=== PATIENT | female | born 2000 | race Caucasian/White ===

== ENCOUNTER 2022-01-21 10:20 | Inpatient (IN) | payer OTHER ==
[2022-01-21] MEDS ORDERED: CITRIC ACID/SODIUM CITRATE 30 ML UNIT-DOSE CUP PO ONE (11:48)
[2022-01-21] MEDS ORDERED: ELECTROLYTE-148 SOLN 500 ML IV ONE (11:48)
[2022-01-21] MEDS ORDERED: ELECTROLYTE-148 SOLN 1,000 ML IV SCH ×2 (12:00→12:18)
[2022-01-21] MEDS ORDERED: ACETAMINOPHEN 325 MG TABLET (FP) PO PRN (12:01)
[2022-01-21] MEDS ORDERED: IBUPROFEN 800 MG/8 ML IJ IVPB PRN (12:01)
[2022-01-21] MEDS ORDERED: OXYTOCIN 20 UNITS in 0.9% NS 20 UNIT/1,000 ML INFUS.BAG IV SCH (12:15)
[2022-01-21 12:33] LABS: BASO % 0.5 % (0-2.0); EOS % 0.2 % (0-4.5); HEMATOCRIT 32.8 % (32.4-45.2); HEMOGLOBIN 10.8 GM/dL (10.7-15.3); LYMPH % 21.3 % (8-40); MCH 26.9 pg (25.7-33.7); MEAN CELL VOLUME 81.5 fl (80-96); MEAN PLT VOLUME 9.6 fl (7.5-11.1); PLATELET COUNT 192 10^3/uL (134-434); RBC 4.03 M/mm3 (3.60-5.2); RDW 16.6 % (11.6-15.6); WHITE BLOOD COUNT 4.6 K/mm3 (4.0-10.0)
[2022-01-21 12:39] LABS: INR 0.86 (0.83-1.09); PROTHROMBIN TIME (PATIENT) 9.9 SEC (9.7-13.0)
[2022-01-21 12:47] LABS: CALCIUM 8.5 mg/dL (8.5-10.1)
[2022-01-21 12:51] LABS: CREATININE 0.7 mg/dL (0.55-1.3)
[2022-01-21] MEDS ORDERED: ONDANSETRON 4 MG/2 ML VIAL IVPUSH PRN (12:57)
[2022-01-21] MEDS ORDERED: morphine SULFATE/PF 1 MG/2 ML (2cc Syringe - QUVA) ONE (13:04)
[2022-01-21] MEDS ORDERED: ceFAZolin SODIUM 1 GM VIAL ONE (13:14)
[2022-01-21] MEDS ORDERED: OXYTOCIN 10 UNITS/ML VIAL ONE (13:52)
[2022-01-21 13:53] LABS: COCAINE, UR NEGATIVE (NEGATIVE); OPIATES, URI NEGATIVE (NEGATIVE); PHENCYCLIDINE,URINE NEGATIVE (NEGATIVE); URINE AMPHETAMINES NEGATIVE (NEGATIVE); URINE BARBITURATES NEGATIVE (NEGATIVE)
[2022-01-21 13:54] LABS: METHADONE, UR NEGATIVE (NEGATIVE); URINE BENZODIAZEPINES NEGATIVE (NEGATIVE)
[2022-01-21 15:38] VITALS: BMI 25.5
[2022-01-21] MEDS ORDERED: IBUPROFEN 800 MG/8 ML IJ IVPB ONE (16:23)
[2022-01-21 20:16] LABS: POC NITRAZINE POS
[2022-01-22] MEDS ORDERED: oxyCODONE HCL 5 MG TABLET PO PRN (00:01)
[2022-01-22] MEDS: IBUPROFEN 600 MG TABLET (FP) PO PRN ×2 (08:03→15:35)
[2022-01-22] MEDS: SIMETHICONE 80 MG TAB.CHEW (FP) PO PRN ×2 (08:03→15:35)
[2022-01-22 09:58] LABS: BASO % 0.3 % (0-2.0); HEMATOCRIT 28.5 % (32.4-45.2); HEMOGLOBIN 9.7 GM/dL (10.7-15.3); LYMPH % 12.6 % (8-40); MCH 27.4 pg (25.7-33.7); MEAN CELL VOLUME 80.8 fl (80-96); MEAN PLT VOLUME 9.1 fl (7.5-11.1); MONO % 5.3 % (3.8-10.2); NEUT % 81.8 % (42.8-82.8); PLATELET COUNT 181 10^3/uL (134-434); RBC 3.52 M/mm3 (3.60-5.2); RDW 17.2 % (11.6-15.6); WHITE BLOOD COUNT 6.2 K/mm3 (4.0-10.0)
[2022-01-22] MEDS ORDERED: BISACODYL 10 MG SUPP.RECT RC PRN (12:01)
[2022-01-23] MEDS: IBUPROFEN 600 MG TABLET (FP) PO PRN ×2 (00:41→14:37)
[2022-01-23] MEDS: SIMETHICONE 80 MG TAB.CHEW (FP) PO PRN ×2 (00:41→14:37)
[2022-01-24 07:22] LABS: BASO % 0.3 % (0-2.0); EOS % 1.6 % (0-4.5); HEMATOCRIT 29.4 % (32.4-45.2); LYMPH % 22.4 % (8-40); MCHC 33.9 g/dl (32.0-36.0); MEAN CELL VOLUME 82.4 fl (80-96); MEAN PLT VOLUME 9.4 fl (7.5-11.1); MONO % 7.5 % (3.8-10.2); NEUT % 68.2 % (42.8-82.8); PLATELET COUNT 269 10^3/uL (134-434); RBC 3.57 M/mm3 (3.60-5.2); RDW 17.7 % (11.6-15.6); WHITE BLOOD COUNT 5.5 K/mm3 (4.0-10.0)
[2022-01-24 08:18] VITALS: BP 129/83; PULSE 68; TEMP 98.9
== END 2022-01-24 15:20 | disposition home or self-care (01) | DRG 540 ==
LOC: JDEL 10:20 → JLDR 11:25 → J3W 17:41
PROVIDERS: ADMIT Student in an Organized Health Care Education/Training Program; ATTEND Student in an Organized Health Care Education/Training Program
PROC: 10D00Z1 Extraction of Products of Conception, Low, Open Approach (ICD-10-PCS; principal; 2022-01-21)
DX: O42.013 Preterm premature rupture of membranes, onset of labor within 24 hours of rupture, third trimester (principal); O98.52 Other viral diseases complicating childbirth; B00.89 Other herpesviral infection; Z3A.36 36 weeks gestation of pregnancy; Z37.0 Single live birth
CPT/HCPCS: 36415; 59025; 71045-TC-FY; 80048; 80307; 83986-QW; 85025; 85610; 85730; 86780; 86850; 86900; 86901; 88307-TC; C9803-CS; U0003; U0005

== ENCOUNTER 2022-02-26 09:05 | Emergency (ER) | payer OTHER ==
[2022-02-26 09:12] VITALS: TEMP 98.1; BMI 20.1
[2022-02-26] MEDS ORDERED: METHOCARBAMOL 500 MG TABLET PO ONE (10:31)
[2022-02-26] MEDS ORDERED: KETOROLAC TROMETHAMINE 30 MG/1 ML VIAL IVPUSH ONE (10:31)
[2022-02-26] MEDS ORDERED: METHOCARBAMOL 500 MG TABLET ONE (11:14)
[2022-02-26] MEDS ORDERED: KETOROLAC TROMETHAMINE 30 MG/1 ML VIAL ONE (11:14)
[2022-02-26 11:23] LABS: BASO % 0.3 % (0-2.0); EOS % 0.7 % (0-4.5); HEMOGLOBIN 12.4 GM/dL (10.7-15.3); LYMPH % 14.8 % (8-40); MCH 26.7 pg (25.7-33.7); MCHC 32.6 g/dl (32.0-36.0); MEAN CELL VOLUME 81.9 fl (80-96); MEAN PLT VOLUME 8.1 fl (7.5-11.1); MONO % 5.6 % (3.8-10.2); NEUT % 78.6 % (42.8-82.8); PLATELET COUNT 320 10^3/uL (134-434); RBC 4.65 M/mm3 (3.60-5.2); WHITE BLOOD COUNT 5.1 K/mm3 (4.0-10.0)
[2022-02-26 11:38] LABS: INR 0.96 (0.83-1.09)
[2022-02-26 11:42] LABS: ALBUMIN 4.3 g/dl (3.4-5.0); CALCIUM 9.9 mg/dL (8.5-10.1)
[2022-02-26 11:43] LABS: BLOOD UREA NITROGEN 7.8 mg/dL (7-18)
[2022-02-26 11:46] LABS: CREATININE 0.6 mg/dL (0.55-1.3)
[2022-02-26 11:48] LABS: BILIRUBIN,TOTAL 0.4 mg/dL (0.2-1); TOT PROT 9.1 g/dl (6.4-8.2)
[2022-02-26 14:37] VITALS: BP 98/52; PULSE 70
== END 2022-02-26 14:54 | disposition home or self-care (01) ==
LOC: JER 09:05
PROC: 3E0333Z Introduction of Anti-inflammatory into Peripheral Vein, Percutaneous Approach (ICD-10-PCS; principal; 2022-02-26)
DX: M54.6 Pain in thoracic spine (principal)
CPT/HCPCS: 36415; 71275-TC; 80053; 84484; 84703; 85025; 85379; 85610; 86480; 93005; 93010; 99285-25

== ENCOUNTER 2022-03-05 13:36 | Inpatient (IN) | payer OTHER ==
[2022-03-05] MEDS ORDERED: ACETAMINOPHEN 1000 MG/100 ML BAG IVPB ONE (14:25)
[2022-03-05] MEDS ORDERED: SODIUM CHLORIDE 1,000 ML IV STA (14:28)
[2022-03-05] MEDS ORDERED: ONDANSETRON 4 MG/2 ML VIAL IVPUSH ONE (14:29)
[2022-03-05] MEDS ORDERED: ACETAMINOPHEN INJECTION 100 ML IVPB ONE (14:32)
[2022-03-05] MEDS ORDERED: FAMOTIDINE 20 MG/50 ML IVPB 20 MG/50 ML MG IVPB ONE ×2 (14:32→22:50)
[2022-03-05] MEDS ORDERED: ONDANSETRON 4 MG/2 ML VIAL ONE (14:32)
[2022-03-05] MEDS: FAMOTIDINE 20 MG/50 ML IVPB 20 MG/50 ML MG IVPB SCH ×2 (14:50→23:21)
[2022-03-05 15:21] LABS: BASO % 0.5 % (0-2.0); EOS % 0.4 % (0-4.5); HEMATOCRIT 34.8 % (32.4-45.2); HEMOGLOBIN 11.6 GM/dL (10.7-15.3); LYMPH % 13.8 % (8-40); MCH 27.1 pg (25.7-33.7); MCHC 33.3 g/dl (32.0-36.0); MEAN CELL VOLUME 81.3 fl (80-96); MEAN PLT VOLUME 8.5 fl (7.5-11.1); MONO % 4.1 % (3.8-10.2); NEUT % 81.2 % (42.8-82.8); PLATELET COUNT 337 10^3/uL (134-434); RBC 4.28 M/mm3 (3.60-5.2); WHITE BLOOD COUNT 8.3 K/mm3 (4.0-10.0)
[2022-03-05 15:27] LABS: EPI CELLS 7 /uL (0-25.1); HYALINE CASTS 2 /uL (0-3.1); URINE APPEARANCE CLEAR; URINE BACTERIA 27 /uL (0-1359); URINE BILIRUBIN NEGATIVE (NEGATIVE); URINE COLOR YELLOW; URINE GLUCOSE (UA) NEGATIVE (NEGATIVE); URINE KETONE NEGATIVE (NEGATIVE); URINE LEUK ESTERASE NEGATIVE (NEGATIVE); URINE NITRITE NEGATIVE (NEGATIVE); URINE PROTEIN 1+ (NEGATIVE); URINE RBC 82 /uL (0-23.9); URINE UROBILINOGEN 0.2 mg/dL (0.2-1.0); URINE WBC 9 /uL (0-25.8)
[2022-03-05 15:37] LABS: CALCIUM 9.1 mg/dL (8.5-10.1)
[2022-03-05 15:38] LABS: BLOOD UREA NITROGEN 6.7 mg/dL (7-18)
[2022-03-05 15:40] LABS: CREATININE 0.7 mg/dL (0.55-1.3)
[2022-03-05 15:42] LABS: BILIRUBIN,TOTAL 0.4 mg/dL (0.2-1); TOT PROT 8.3 g/dl (6.4-8.2)
[2022-03-05 18:35] LABS: INR 0.97 (0.83-1.09); PROTHROMBIN TIME (PATIENT) 11.1 SEC (9.7-13.0)
[2022-03-05 18:38] LABS: ACTIVATED PTT 34.8 SECONDS (25.2-36.5)
[2022-03-05] MEDS ORDERED: ONDANSETRON 4 MG/2 ML VIAL IVPUSH PRN (19:43)
[2022-03-06 02:24] VITALS: BMI 20.7
[2022-03-06 08:48] LABS: BASO % 0.6 % (0-2.0); EOS % 0.3 % (0-4.5); HEMATOCRIT 30.6 % (32.4-45.2); HEMOGLOBIN 10.4 GM/dL (10.7-15.3); LYMPH % 27.2 % (8-40); MCH 27.9 pg (25.7-33.7); MEAN CELL VOLUME 82.1 fl (80-96); MEAN PLT VOLUME 7.9 fl (7.5-11.1); MONO % 7.4 % (3.8-10.2); NEUT % 64.5 % (42.8-82.8); PLATELET COUNT 274 10^3/uL (134-434); RBC 3.73 M/mm3 (3.60-5.2); RDW 17.4 % (11.6-15.6); WHITE BLOOD COUNT 3.7 K/mm3 (4.0-10.0)
[2022-03-06 09:12] LABS: ALBUMIN 3.3 g/dl (3.4-5.0); CALCIUM 9.1 mg/dL (8.5-10.1)
[2022-03-06 09:13] LABS: BLOOD UREA NITROGEN 4.3 mg/dL (7-18); MAGNESIUM 2.4 mg/dL (1.8-2.4)
[2022-03-06 09:15] LABS: PHOSPHOROUS 3.7 mg/dL (2.5-4.9)
[2022-03-06 09:16] LABS: CREATININE 0.7 mg/dL (0.55-1.3)
[2022-03-06 09:17] LABS: BILIRUBIN,TOTAL 1.5 mg/dL (0.2-1); TOT PROT 6.8 g/dl (6.4-8.2)
[2022-03-06] MEDS: FAMOTIDINE 20 MG/50 ML IVPB 20 MG/50 ML MG IVPB SCH ×2 (09:18→23:16)
[2022-03-06] MEDS ORDERED: CEFTRIAXONE 1 GM in DEXTROSE 5%-WATER - 50 ML IVPB ONE (12:00)
[2022-03-06] MEDS ORDERED: cefTRIAXone SODIUM 1 GM VIAL ONE (12:02)
[2022-03-06] MEDS ORDERED: DEXTROSE 5%-WATER - 50 ML IVPB ONE (12:03)
[2022-03-07] MEDS ORDERED: DEXTROSE 5%-0.45% SALINE 1,000 ML IV SCH (07:00)
[2022-03-07 08:48] LABS: BASO % 0.6 % (0-2.0); EOS % 0.9 % (0-4.5); HEMATOCRIT 31.3 % (32.4-45.2); HEMOGLOBIN 10.4 GM/dL (10.7-15.3); LYMPH % 22.3 % (8-40); MCH 27.6 pg (25.7-33.7); MCHC 33.4 g/dl (32.0-36.0); MEAN CELL VOLUME 82.5 fl (80-96); MEAN PLT VOLUME 8.9 fl (7.5-11.1); MONO % 5.9 % (3.8-10.2); NEUT % 70.3 % (42.8-82.8); PLATELET COUNT 267 10^3/uL (134-434); RBC 3.79 M/mm3 (3.60-5.2); WHITE BLOOD COUNT 3.7 K/mm3 (4.0-10.0)
[2022-03-07 09:04] LABS: ALBUMIN 3.5 g/dl (3.4-5.0); BLOOD UREA NITROGEN 8.1 mg/dL (7-18); MAGNESIUM 2.1 mg/dL (1.8-2.4)
[2022-03-07 09:07] LABS: CREATININE 0.7 mg/dL (0.55-1.3); PHOSPHOROUS 3.5 mg/dL (2.5-4.9)
[2022-03-07 09:08] LABS: TOT PROT 7.2 g/dl (6.4-8.2)
[2022-03-07] MEDS: FAMOTIDINE 20 MG/50 ML IVPB 20 MG/50 ML MG IVPB SCH ×2 (10:50→22:12)
[2022-03-08] MEDS ORDERED: INDOMETHACIN 50 MG RECTAL SUPPOSITORY PR ONE ×2 (08:01→09:17)
[2022-03-08] MEDS ORDERED: CEFAZOLIN 1 GM in DEXTROSE 5%-WATER - 50 ML IVPB ONE (08:07)
[2022-03-08] MEDS ORDERED: EPINEPHrine 1:10,000 (P-F SYR) 1 MG/10 ML DISP.SYRIN ONE (08:40)
[2022-03-08] MEDS ORDERED: FENTANYL CITRATE/PF 50 MCG/ML VIAL ONE (08:51)
[2022-03-08] MEDS ORDERED: MIDAZOLAM HCL 2 MG/2 ML SINGLE DOSE VIAL ONE (08:51)
[2022-03-08 08:58] LABS: HEMATOCRIT 30.6 % (32.4-45.2); HEMOGLOBIN 10.2 GM/dL (10.7-15.3); MCH 27.4 pg (25.7-33.7); MCHC 33.4 g/dl (32.0-36.0); MEAN PLT VOLUME 8.5 fl (7.5-11.1); PLATELET COUNT 280 10^3/uL (134-434); RBC 3.73 M/mm3 (3.60-5.2); RDW 16.9 % (11.6-15.6); WHITE BLOOD COUNT 2.8 K/mm3 (4.0-10.0)
[2022-03-08] MEDS ORDERED: ceFAZolin SODIUM 1 GM VIAL ONE (09:15)
[2022-03-08 09:20] LABS: ALBUMIN 3.2 g/dl (3.4-5.0); CALCIUM 8.6 mg/dL (8.5-10.1)
[2022-03-08 09:21] LABS: BLOOD UREA NITROGEN 4.7 mg/dL (7-18)
[2022-03-08 09:24] LABS: CREATININE 0.7 mg/dL (0.55-1.3)
[2022-03-08 09:25] LABS: BILIRUBIN,TOTAL 0.5 mg/dL (0.2-1); TOT PROT 6.6 g/dl (6.4-8.2)
[2022-03-08] MEDS ORDERED: IOHEXOL 300 MG/ML INFUS..BTL IV ONE (09:39)
[2022-03-08] MEDS ORDERED: CEFAZOLIN 2 GM in SODIUM CHLORIDE 100 ML IVPB SCH (10:00)
[2022-03-08] MEDS ORDERED: LACTATED RINGERS SOLUTION 1,000 ML/1,000 ML INFUS.BAG IV SCH (10:30)
[2022-03-08] MEDS ORDERED: CEFTRIAXONE 1 GM in DEXTROSE 5%-WATER - 50 ML IVPB SCH (11:15)
[2022-03-08] MEDS ORDERED: DEXTROSE 5%-WATER - 50 ML IVPB ONE (11:56)
[2022-03-08] MEDS ORDERED: cefTRIAXone SODIUM 1 GM VIAL ONE (11:56)
[2022-03-08] MEDS: DEXTROSE 5%-LACTATED RINGERS 1,000 ML IV SCH ×3 (12:14→21:04)
[2022-03-08] MEDS: FAMOTIDINE 20 MG/50 ML IVPB 20 MG/50 ML MG IVPB SCH ×2 (12:51→21:05)
[2022-03-08] MEDS ORDERED: ceFAZolin 2 GRAM PREMIX BAG IVPB SCH (14:00)
[2022-03-08] MEDS: CEFAZOLIN 2 GM in SODIUM CHLORIDE 100 ML IVPB SCH (17:01)
[2022-03-08 19:07] LABS: GLIADIN ANTIBODY IGA 3 units (0-19); GLIADIN ANTIBODY IGG <1 units (0-19); TRANSGLUTAMINASE IGG < 2 U/mL (0-5)
[2022-03-09] MEDS: CEFAZOLIN 2 GM in SODIUM CHLORIDE 100 ML IVPB SCH ×2 (02:16→11:37)
[2022-03-09] MEDS: DEXTROSE 5%-LACTATED RINGERS 1,000 ML IV SCH (06:30)
[2022-03-09] MEDS ORDERED: DEXTROSE 5%-LACTATED RINGERS 1,000 ML IV SCH (08:11)
[2022-03-09] MEDS: FAMOTIDINE 20 MG/50 ML IVPB 20 MG/50 ML MG IVPB SCH ×2 (09:02→21:56)
[2022-03-09] MEDS ORDERED: DEXTROSE 5%-WATER - 50 ML IVPB ONE (09:04)
[2022-03-09] MEDS ORDERED: cefTRIAXone SODIUM 1 GM VIAL ONE (09:04)
[2022-03-09 09:09] LABS: BASO % 0.4 % (0-2.0); EOS % 0.1 % (0-4.5); HEMATOCRIT 25.9 % (32.4-45.2); HEMOGLOBIN 8.8 GM/dL (10.7-15.3); LYMPH % 32.9 % (8-40); MCH 27.8 pg (25.7-33.7); MCHC 33.9 g/dl (32.0-36.0); MEAN PLT VOLUME 8.4 fl (7.5-11.1); MONO % 9.7 % (3.8-10.2); NEUT % 56.9 % (42.8-82.8); PLATELET COUNT 247 10^3/uL (134-434); RBC 3.15 M/mm3 (3.60-5.2); RDW 17.1 % (11.6-15.6); WHITE BLOOD COUNT 4.6 K/mm3 (4.0-10.0)
[2022-03-09 09:34] LABS: CHLORIDE 111 mmol/L (98-107); INR 1.09 (0.83-1.09); PROTHROMBIN TIME (PATIENT) 12.6 SEC (9.7-13.0); SODIUM 144 mmol/L (136-145)
[2022-03-09] MEDS ORDERED: CEFTRIAXONE 1 GM in DEXTROSE 5%-WATER - 50 ML IVPB SCH (10:00)
[2022-03-09 10:02] LABS: ANION GAP 7 MMOL/L (8-16); CO2 26 mmol/L (21-32); LIPASE 877 U/L (73-393)
[2022-03-09 10:03] LABS: CREATININE 0.7 mg/dL (0.55-1.3)
[2022-03-09 10:04] LABS: TOT PROT 5.6 g/dl (6.4-8.2)
[2022-03-09 10:05] LABS: SGOT/AST 62 U/L (15-37)
[2022-03-09 10:06] LABS: GLUCOSE,RANDOM 148 mg/dL (74-106)
[2022-03-09 10:07] LABS: ALBUMIN 2.8 g/dl (3.4-5.0); AMYLASE 222 U/L (25-115)
[2022-03-09 10:08] LABS: BILIRUBIN,DIRECT 0.2 mg/dL (0.0-0.2); CALCIUM 8.5 mg/dL (8.5-10.1)
[2022-03-09 10:09] LABS: BILIRUBIN,TOTAL 0.3 mg/dL (0.2-1)
[2022-03-09 10:12] LABS: SGPT/ALT 155 U/L (13-61)
[2022-03-09 10:14] LABS: ALK PHOS 155 U/L (45-117); BLOOD UREA NITROGEN 2.9 mg/dL (7-18)
[2022-03-09] MEDS ORDERED: ONDANSETRON 4 MG/2 ML VIAL IVPUSH PRN ×3 (13:11→14:51)
[2022-03-09] MEDS ORDERED: MIDAZOLAM HCL 2 MG/2 ML SINGLE DOSE VIAL ONE (13:14)
[2022-03-09] MEDS ORDERED: ROCURONIUM BROMIDE 100 MG/10 ML VIAL ONE (13:15)
[2022-03-09] MEDS ORDERED: PROPOFOL 20 ML ONE (13:15)
[2022-03-09] MEDS ORDERED: LACTATED RINGERS SOLUTION 1,000 ML IV SCH (13:15)
[2022-03-09] MEDS ORDERED: FENTANYL CITRATE/PF 50 MCG/ML VIAL ONE ×5 (13:15→14:59)
[2022-03-09] MEDS ORDERED: BUPIVACAINE HCL/PF 0.25% (2.5MG/ML) 10 ML VIAL ONE (13:17)
[2022-03-09] MEDS ORDERED: KETOROLAC TROMETHAMINE 30 MG/1 ML VIAL ONE (13:55)
[2022-03-09] MEDS ORDERED: DEXAMETHASONE SOD PHOSPHATE 4 MG/1 ML VIAL ONE (13:55)
[2022-03-09] MEDS ORDERED: LIDOCAINE HCL/PF 2% SDV 5ML VIAL ONE (13:55)
[2022-03-09] MEDS ORDERED: ONDANSETRON 4 MG/2 ML VIAL ONE (13:55)
[2022-03-09] MEDS ORDERED: GLYCOPYRROLATE 0.2 MG/1 ML VIAL ONE ×2 (13:55→13:56)
[2022-03-09] MEDS ORDERED: NEOSTIGMINE METHYLSULFATE 0.5 MG/ML - 10 ML MDV ONE (13:57)
[2022-03-09] MEDS ORDERED: BUPIVACAINE HCL/PF 2.5 MG/ML - 30 ML VIAL IJ ONE (14:05)
[2022-03-09] MEDS ORDERED: oxyCODONE HCL 5 MG TABLET PO PRN (14:51)
[2022-03-09] MEDS ORDERED: IBUPROFEN 800 MG/8 ML IJ IVPB PRN (14:51)
[2022-03-09] MEDS: LACTATED RINGERS SOLUTION 1,000 ML IV SCH (17:38)
[2022-03-10] MEDS: LACTATED RINGERS SOLUTION 1,000 ML IV SCH (01:51)
[2022-03-10] MEDS: ACETAMINOPHEN 325 MG TABLET (FP) PO PRN ×2 (04:11→12:55)
[2022-03-10 09:05] LABS: HEMOGLOBIN 9.6 GM/dL (10.7-15.3); MCHC 34.1 g/dl (32.0-36.0); MEAN CELL VOLUME 81.9 fl (80-96); MEAN PLT VOLUME 8.4 fl (7.5-11.1); PLATELET COUNT 255 10^3/uL (134-434); RBC 3.42 M/mm3 (3.60-5.2); RDW 17.1 % (11.6-15.6); WHITE BLOOD COUNT 5.3 K/mm3 (4.0-10.0)
[2022-03-10 09:30] LABS: ALBUMIN 3.2 g/dl (3.4-5.0); CALCIUM 8.7 mg/dL (8.5-10.1)
[2022-03-10 09:34] LABS: CREATININE 0.7 mg/dL (0.55-1.3)
[2022-03-10 09:35] LABS: BILIRUBIN,TOTAL 0.4 mg/dL (0.2-1); TOT PROT 6.4 g/dl (6.4-8.2)
[2022-03-10] MEDS: FAMOTIDINE 20 MG/50 ML IVPB 20 MG/50 ML MG IVPB SCH (10:06)
[2022-03-10 10:18] VITALS: BP 118/70; PULSE 67; TEMP 98.2
== END 2022-03-10 15:35 | disposition home or self-care (01) | DRG 263 ==
LOC: JER 13:36 → JERBED 17:44 → J7W 03-06 01:25
PROVIDERS: ADMIT Internal Medicine; ATTEND Internal Medicine
PROC: 0FC98ZZ Extirpation of Matter from Common Bile Duct, Via Natural or Artificial Opening Endoscopic (ICD-10-PCS; 2022-03-08)
PROC: BF14YZZ Fluoroscopy of Gallbladder, Bile Ducts and Pancreatic Ducts using Other Contrast (ICD-10-PCS; 2022-03-08)
PROC: 0FT44ZZ Resection of Gallbladder, Percutaneous Endoscopic Approach (ICD-10-PCS; principal; 2022-03-09 13:00)
DX: K80.50 Calculus of bile duct without cholangitis or cholecystitis without obstruction (principal); K80.20 Calculus of gallbladder without cholecystitis without obstruction; R10.11 Right upper quadrant pain; R10.13 Epigastric pain; R74.01 Elevation of levels of liver transaminase levels
CPT/HCPCS: 36415; 74181-TC; 76000-TC-FY; 76705-TC; 80053; 81003; 82150; 82248; 82784; 83516; 83690; 83735; 84100; 84703; 85025; 85027; 85610; 85730; 86038; 86140; 86705; 86707; 86708; 86850; 86900; 86901; 87086; 87340; 87350; 87517; 87902; 88304-TC; 93005; 93010; 94760; 99285-25; C9803-CS; U0003; U0005

== ENCOUNTER 2023-04-24 00:24 | Emergency (ER) | payer OTHER ==
[2023-04-24 00:38] VITALS: BP 112/72; PULSE 79; RESP 20; TEMP 98.4; BMI 23.2
[2023-04-24] MEDS ORDERED: AMOX TR/POT CLAV 875MG/125MG TABLETS (FP) PO ONE (01:06)
[2023-04-24] MEDS ORDERED: IBUPROFEN 600 MG TABLET (FP) PO ONE ×2 (01:06→01:09)
[2023-04-24] MEDS ORDERED: AMOX TR/POT CLAV 875MG/125MG TABLETS (FP) ONE (01:08)
== END 2023-04-24 01:40 | disposition home or self-care (01) ==
LOC: JER 00:24
DX: L60.0 Ingrowing nail (principal); M79.675 Pain in left toe(s); L08.9 Local infection of the skin and subcutaneous tissue, unspecified
CPT/HCPCS: 99283-25

== ENCOUNTER 2023-12-02 22:42 | Emergency (ER) | payer OTHER ==
[2023-12-02 22:47] VITALS: BP 121/75; PULSE 96; RESP 20; TEMP 98.4; BMI 28.3
[2023-12-02] MEDS ORDERED: ACETAMINOPHEN INJECTION 100 ML IVPB ONE (23:17)
[2023-12-02] MEDS ORDERED: FAMOTIDINE 10 MG/ML VIAL IVPB ONE (23:17)
[2023-12-02] MEDS ORDERED: FAMOTIDINE 20 MG/50 ML IVPB 20 MG/50 ML MG IVPB ONE (23:17)
[2023-12-02 23:18] LABS: BASO % 0.8 % (0-2.0); EOS % 0.5 % (0-4.5); HEMATOCRIT 34.6 % (32.4-45.2); HEMOGLOBIN 11.9 GM/dL (10.7-15.3); LYMPH % 20.4 % (8-40); MCH 26.6 pg (25.7-33.7); MCHC 34.4 g/dl (32.0-36.0); MEAN CELL VOLUME 77.3 fl (80-96); MEAN PLT VOLUME 8.5 fl (7.5-11.1); MONO % 5.6 % (3.8-10.2); NEUT % 72.7 % (42.8-82.8); PLATELET COUNT 248 10^3/uL (134-434); RBC 4.47 M/mm3 (3.60-5.2); RDW 15.3 % (11.6-15.6); WHITE BLOOD COUNT 6.7 K/mm3 (4.0-10.0)
[2023-12-02] MEDS ORDERED: ONDANSETRON 4 MG/2 ML VIAL ONE (23:18)
[2023-12-02 23:35] LABS: POTASSIUM 4.1 mmol/L (3.5-5.1)
[2023-12-02 23:38] LABS: ALBUMIN 3.7 g/dl (3.4-5.0); BLOOD UREA NITROGEN 8.3 mg/dL (7-18)
[2023-12-02 23:40] LABS: CREATININE 0.7 mg/dL (0.55-1.3)
[2023-12-02 23:41] LABS: BILIRUBIN,TOTAL 0.2 mg/dL (0.2-1)
[2023-12-02] MEDS: ACETAMINOPHEN 1000 MG/100 ML BAG IVPB ONE (23:57)
[2023-12-03] MEDS: ONDANSETRON 4 MG/2 ML VIAL IVPUSH ONE (00:07)
[2023-12-03] MEDS: FAMOTIDINE 20 MG/50 ML IVPB 20 MG/50 ML MG IVPB ONE (00:07)
[2023-12-03] MEDS: SODIUM CHLORIDE 0.9% 500 ML INFUS.BAG IV ONE (00:07)
[2023-12-03 00:56] LABS: HCG,QUALITATIVE URINE Positive
[2023-12-03 00:59] LABS: EPI CELLS 2 /uL (0-25.1); HYALINE CASTS 0 /uL (0-3.1); PH,URINE 7.5 (5.0-8.0); URINE APPEARANCE CLEAR; URINE BACTERIA 9 /uL (0-1359); URINE BILIRUBIN NEGATIVE (NEGATIVE); URINE COLOR YELLOW; URINE GLUCOSE (UA) NEGATIVE (NEGATIVE); URINE KETONE NEGATIVE (NEGATIVE); URINE LEUK ESTERASE NEGATIVE (NEGATIVE); URINE NITRITE NEGATIVE (NEGATIVE); URINE PROTEIN NEGATIVE (NEGATIVE); URINE RBC 20 /uL (0-23.9); URINE UROBILINOGEN 0.2 mg/dL (0.2-1.0); URINE WBC 1 /uL (0-25.8)
== END 2023-12-03 02:52 | disposition home or self-care (01) ==
LOC: JER 22:42
PROC: 3E033GC Introduction of Other Therapeutic Substance into Peripheral Vein, Percutaneous Approach (ICD-10-PCS; principal; 2023-12-02)
PROC: 3E033GC Introduction of Other Therapeutic Substance into Peripheral Vein, Percutaneous Approach (ICD-10-PCS; 2023-12-02)
PROC: 3E033GC Introduction of Other Therapeutic Substance into Peripheral Vein, Percutaneous Approach (ICD-10-PCS; 2023-12-02)
PROC: 3E033NZ Introduction of Analgesics, Hypnotics, Sedatives into Peripheral Vein, Percutaneous Approach (ICD-10-PCS; 2023-12-02)
DX: O26.891 Other specified pregnancy related conditions, first trimester (principal); R10.84 Generalized abdominal pain; R10.13 Epigastric pain; R11.0 Nausea; O99.611 Diseases of the digestive system complicating pregnancy, first trimester; K59.00 Constipation, unspecified; R19.7 Diarrhea, unspecified; R50.9 Fever, unspecified; Z3A.11 11 weeks gestation of pregnancy
CPT/HCPCS: 36415; 76801-TC; 80053; 81003; 83690; 84702; 84703; 85025; 87086; 99284-25; J0131

== ENCOUNTER 2024-02-17 16:10 | Emergency (ER) | payer OTHER ==
[2024-02-17 16:18] VITALS: BMI 32.2
[2024-02-17 17:15] LABS: BASO % 0.4 % (0-2.0); EOS % 1.6 % (0-4.5); HEMATOCRIT 27.8 % (32.4-45.2); HEMOGLOBIN 9.9 GM/dL (10.7-15.3); LYMPH % 10.5 % (8-40); MCHC 35.5 g/dl (32.0-36.0); MEAN CELL VOLUME 78.7 fl (80-96); MONO % 5.4 % (3.8-10.2); NEUT % 82.1 % (42.8-82.8); PLATELET COUNT 366 10^3/uL (134-434); RBC 3.53 M/mm3 (3.60-5.2); RDW 15.2 % (11.6-15.6); WHITE BLOOD COUNT 8.4 K/mm3 (4.0-10.0)
[2024-02-17 17:16] LABS: PH,URINE 6.5 (5.0-8.0); URINE APPEARANCE Error; URINE BILIRUBIN NEGATIVE (NEGATIVE); URINE COLOR YELLOW; URINE GLUCOSE (UA) NEGATIVE (NEGATIVE); URINE KETONE NEGATIVE (NEGATIVE); URINE LEUK ESTERASE NEGATIVE (NEGATIVE); URINE NITRITE NEGATIVE (NEGATIVE); URINE PROTEIN NEGATIVE (NEGATIVE); URINE UROBILINOGEN 0.2 mg/dL (0.2-1.0)
[2024-02-17 17:40] LABS: POTASSIUM 3.8 mmol/L (3.5-5.1)
[2024-02-17 17:42] LABS: CALCIUM 8.9 mg/dL (8.5-10.1)
[2024-02-17 17:44] LABS: BLOOD UREA NITROGEN 5.4 mg/dL (7-18)
[2024-02-17 17:46] LABS: CREATININE 0.4 mg/dL (0.55-1.3)
[2024-02-17 17:47] LABS: BILIRUBIN,TOTAL 0.2 mg/dL (0.2-1); TOT PROT 6.9 g/dl (6.4-8.2)
[2024-02-17 21:02] VITALS: BP 113/61; PULSE 101; RESP 20; TEMP 98.2
== END 2024-02-17 20:10 | disposition home or self-care (01) ==
LOC: JER 16:10
DX: O20.9 Hemorrhage in early pregnancy, unspecified (principal); Z3A.17 17 weeks gestation of pregnancy
CPT/HCPCS: 36415; 76801-TC; 80053; 81003; 85025; 86850; 86900; 86901; 87086; 99284-25

== ENCOUNTER 2024-05-01 17:42 | Emergency (ER) | payer OTHER ==
[2024-05-01 17:51] VITALS: BMI 24.7
[2024-05-01 18:47] VITALS: BP 116/64; PULSE 93; RESP 20
[2024-05-01 18:51] VITALS: TEMP 93
[2024-05-03 11:30] LABS: POC NITRAZINE NEG
== END 2024-05-01 18:50 | disposition home or self-care (01) ==
LOC: JER 17:42
DX: O41.93X0 Disorder of amniotic fluid and membranes, unspecified, third trimester, not applicable or unspecified (principal); Z3A.30 30 weeks gestation of pregnancy
CPT/HCPCS: 83986-QW; 99283-25

== ENCOUNTER 2024-07-01 06:00 | Inpatient (IN) | payer OTHER ==
[2024-07-01] MEDS: ELECTROLYTE-148 SOLN 500 ML IV ONE ×3 (06:25→10:18)
[2024-07-01 06:34] VITALS: BMI 26.2
[2024-07-01] MEDS ORDERED: ONDANSETRON 4 MG/2 ML VIAL IVPUSH PRN (07:29)
[2024-07-01] MEDS ORDERED: IBUPROFEN 600 MG TABLET (FP) PO PRN (07:29)
[2024-07-01] MEDS ORDERED: ACETAMINOPHEN 325 MG TABLET (FP) PO PRN (07:29)
[2024-07-01] MEDS: CITRIC ACID/SODIUM CITRATE 30 ML UNIT-DOSE CUP PO ONE (07:45)
[2024-07-01] MEDS ORDERED: morphine SULFATE/PF 1 MG/2 ML (2cc Syringe - QUVA) ONE (07:45)
[2024-07-01] MEDS ORDERED: FENTANYL CITRATE/PF 50 MCG/ML VIAL ONE (07:46)
[2024-07-01] MEDS ORDERED: METHYLERGONOVINE MALEATE 0.2 MG/1 ML AMP IM PRN (08:20)
[2024-07-01] MEDS ORDERED: ONDANSETRON 4 MG/2 ML VIAL ONE ×2 (08:36)
[2024-07-01] MEDS ORDERED: DEXAMETHASONE SOD PHOSPHATE 4 MG/1 ML VIAL ONE (08:36)
[2024-07-01] MEDS ORDERED: KETOROLAC TROMETHAMINE 30 MG/1 ML VIAL ONE (08:36)
[2024-07-01] MEDS ORDERED: OXYTOCIN 10 UNITS/ML VIAL ONE ×3 (08:37)
[2024-07-01] MEDS ORDERED: OXYTOCIN 20 UNITS in 0.9% NS 20 UNIT/1,000 ML INFUS.BAG IV ONE (09:43)
[2024-07-01] MEDS: OXYTOCIN 20 UNITS in 0.9% NS 20 UNIT/1,000 ML INFUS.BAG IV SCH (09:50)
[2024-07-01] MEDS: ELECTROLYTE-148 SOLN 1,000 ML IV SCH (10:18)
[2024-07-01] MEDS ORDERED: IBUPROFEN 600 MG TABLET (FP) PO ONE (10:45)
[2024-07-01] MEDS ORDERED: IBUPROFEN 800 MG/8 ML IJ IVPB ONE (10:48)
[2024-07-01] MEDS: IBUPROFEN 800 MG/8 ML IJ IVPB PRN (11:00)
[2024-07-01] MEDS: ACETAMINOPHEN 1000 MG/100 ML BAG IVPB PRN (14:48)
[2024-07-01] MEDS: CEFAZOLIN 1 GM in DEXTROSE 5%-WATER - 50 ML IVPB ONE (17:56)
[2024-07-01] MEDS ORDERED: oxyCODONE HCL 5 MG TABLET PO PRN (20:20)
[2024-07-02] MEDS: SIMETHICONE 80 MG TAB.CHEW (FP) PO PRN (06:22)
[2024-07-02] MEDS: ACETAMINOPHEN 325 MG TABLET (FP) PO PRN (06:22)
[2024-07-02 08:17] LABS: BASO % 0.4 % (0-2.0); EOS % 0.4 % (0-4.5); HEMATOCRIT 32.2 % (32.4-45.2); HEMOGLOBIN 10.9 GM/dL (10.7-15.3); LYMPH % 17.9 % (8-40); MCH 28.9 pg (25.7-33.7); MCHC 33.9 g/dl (32.0-36.0); MEAN CELL VOLUME 85.2 fl (80-96); MEAN PLT VOLUME 8.6 fl (7.5-11.1); MONO % 7.3 % (3.8-10.2); PLATELET COUNT 182 10^3/uL (134-434); RBC 3.78 M/mm3 (3.60-5.2); RDW 14.5 % (11.6-15.6); WHITE BLOOD COUNT 7.3 K/mm3 (4.0-10.0)
[2024-07-02] MEDS ORDERED: BISACODYL 10 MG SUPP.RECT RC PRN (08:20)
[2024-07-02] MEDS: IBUPROFEN 600 MG TABLET (FP) PO PRN (14:36)
[2024-07-03] MEDS ORDERED: DIPHTH,PERTUSS(ACELL),TET 0.5 ML DISP.SYRIN IM ONE (10:00)
[2024-07-03 19:57] VITALS: RESP 18
[2024-07-04 06:02] LABS: BASO % 0.4 % (0-2.0); EOS % 5.3 % (0-4.5); HEMATOCRIT 31.2 % (32.4-45.2); HEMOGLOBIN 10.5 GM/dL (10.7-15.3); LYMPH % 25.9 % (8-40); MCH 28.9 pg (25.7-33.7); MCHC 33.7 g/dl (32.0-36.0); MEAN CELL VOLUME 85.7 fl (80-96); MEAN PLT VOLUME 8.2 fl (7.5-11.1); MONO % 7.1 % (3.8-10.2); NEUT % 61.3 % (42.8-82.8); PLATELET COUNT 225 10^3/uL (134-434); RBC 3.64 M/mm3 (3.60-5.2); RDW 14.8 % (11.6-15.6); WHITE BLOOD COUNT 5.4 K/mm3 (4.0-10.0)
[2024-07-04 09:36] VITALS: BP 107/66; PULSE 76; TEMP 98.6
[2024-07-04] MEDS: DIPHTH,PERTUSS(ACELL),TET 0.5 ML DISP.SYRIN IM ONE (09:46)
== END 2024-07-04 15:05 | disposition home or self-care (01) | DRG 540 ==
LOC: JLDR 06:00 → J3W 11:50
PROVIDERS: ADMIT Student in an Organized Health Care Education/Training Program; ATTEND Student in an Organized Health Care Education/Training Program
PROC: 10D00Z1 Extraction of Products of Conception, Low, Open Approach (ICD-10-PCS; principal; 2024-07-01)
DX: O34.211 Maternal care for low transverse scar from previous cesarean delivery (principal); N85.8 Other specified noninflammatory disorders of uterus; Z3A.39 39 weeks gestation of pregnancy; Z37.0 Single live birth
CPT/HCPCS: 36415; 59409; 80053; 81003; 85025; 85610; 86780; 86850; 86900; 86901; 88307-TC; 90715; 94010; J0131